=== PATIENT | female | born 1990 | race Caucasian/White ===

== ENCOUNTER → 2016-10-08 | Outpatient (CLI) | payer BC ==
[~2016-10-08] MED LIST: AMOX1TAB12 PO; BENZ-22 PO; IBUP200C PO; METH4TAB27 PO; OXYC1TAB87 PO
== END ==
LOC: LAB 10:55
PROVIDERS: ATTEND Obstetrics & Gynecology
DX: N91.0 Primary amenorrhea (principal)
CPT/HCPCS: 36415; 84702

== ENCOUNTER → 2016-10-10 | Outpatient (CLI) | payer BC | LOC: LAB 07:32 | PROVIDERS: ATTEND Obstetrics & Gynecology | DX: N91.0 Primary amenorrhea (principal) | CPT/HCPCS: 36415; 84702 ==